=== PATIENT | male | born 1995 | race Two or more races ===

== ENCOUNTER 2020-11-20 21:26 | Emergency (ER) | payer OTHER ==
[2020-11-20 21:34] VITALS: RESP 16; TEMP 98
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
[2020-11-20 21:58] LABS: Basophils % (A) 1 %; Eosinophils # (A) 0.1 k/uL (0-0.7); Eosinophils % (A) 1 %; HCT 42.8 % (39.0-53.0); HGB 14.4 gm/dL (13.0-17.5); Lymphocytes # (A) 1.5 k/uL (1.0-4.8); Lymphocytes % (A) 22 %; MCH 30.1 pg (25.0-35.0); MCHC 33.7 g/dL (31.0-37.0); MCV 89.2 fL (80.0-100.0); Mean Platelet Volume 7.4; Monocytes # (A) 0.4 k/uL (0-1.0); Monocytes % (A) 6 %; Neutrophils # (A) 4.5 k/uL (1.3-7.7); Neutrophils % (A) 69 %; Platelet Count 226 k/uL (150-450); RBC 4.79 m/uL (4.30-5.90); RDW 12.9 % (11.5-15.5); WBC 6.5 k/uL (3.8-10.6)
[2020-11-20 22:08] LABS: INR 1.1 (<1.2); Partial Thromboplastin Time 21.9 sec (22.0-30.0); Prothrombin Time 11.1 sec (9.0-12.0)
--- NOTE | 2020-11-20 22:35 | CT ---
EXAMINATION TYPE: CT brain cspine wo con DATE OF EXAM: 11/20/2020 COMPARISON: None HISTORY: FALL CT DLP: 1366 mGycm Automated exposure control for dose reduction was used. Images obtained of the brain and cervical spine without contrast. The ventricles and sulci appear normal. There is no mass effect nor midline shift. There is no sign o f intracranial hemorrhage. The calvarium is intact. There are bilateral large mucus retention cysts i n the maxillary sinuses. There is mild ethmoid sinus mucosal thickening. Skull base is intact. There is normal aeration of the mastoid air cells. The cervical vertebra have normal spacing and alignment. Posterior elements are intact. Facet joints appear normal. There is no evidence of a fracture. Cervical soft tissues appear intact. IMPRESSION: Negative CT scan of the brain. Negative CT scan of the cervical spine.
--- NOTE | 2020-11-20 22:40 | CT ---
EXAMINATION TYPE: CT thoracic spine wo con DATE OF EXAM: 11/20/2020 COMPARISON: None HISTORY: FALL CT DLP: 1342.6 mGycm Automated exposure control for dose reduction was used. Images obtained from the level of T1-L1 with no contrast. FINDINGS: The thoracic vertebra have fairly normal alignment. There is anterior wedging of T7 vertebral body th at could be an acute fracture. There is approximate 25% loss of height anteriorly. The posterior wiyot ents are intact. Facet joints are intact. There is no thoracic paraspinal mass. I see no focal bone d estruction. IMPRESSION: T7 compression fracture appears to be an acute fracture. No evidence of any burst component.
[2020-11-20 22:47] LABS: ALT 33 U/L (4-49); AST 37 U/L (17-59); African American GFR (CKD) >90 (>60 ml/min/1.73 sqM); Albumin 4.7 g/dL (3.5-5.0); Alcohol <10 mg/dL; Alkaline Phosphatase 63 U/L (38-126); Anion Gap 9 mmol/L; Blood Urea Nitrogen 20 mg/dL (9-20); Calcium 9.2 mg/dL (8.4-10.2); Carbon Dioxide 27 mmol/L (22-30); Chloride 104 mmol/L (98-107); Glucose 113 mg/dL (74-99); Non-African American GFR(CKD) >90 (>60 ml/min/1.73 sqM); Potassium 4.1 mmol/L (3.5-5.1); Sodium 140 mmol/L (137-145); Total Bilirubin 0.5 mg/dL (0.2-1.3); Total Protein 7.1 g/dL (6.3-8.2)
[2020-11-20] MEDS ORDERED: HYDROmorphone 0.5 MG/0.5 ML SYRINGE IVP STA (22:48)
[2020-11-20] MEDS ORDERED: HYDROmorphone 1 MG/ML 1 ML SYRINGE IVP STA (23:31)
[2020-11-21 00:52] VITALS: BP 129/80; PULSE 82
== END 2020-11-21 00:52 | disposition home or self-care (01) ==
LOC: EC 21:26
DX: S22.000A Wedge compression fracture of unspecified thoracic vertebra, initial encounter for closed fracture (principal); J45.909 Unspecified asthma, uncomplicated; W17.89XA Other fall from one level to another, initial encounter; Y92.89 Other specified places as the place of occurrence of the external cause
CPT/HCPCS: 36415; 93005; 86900; 86901; 80053; 84484; 85025; 85610; 85730; 86850; 72128; 72125; 70450; 99284; 96374; 96376; G0480; J1170 ×2; 80320